=== PATIENT | female | born 1955 | race Caucasian/White ===

== ENCOUNTER 2022-05-29 13:08 | Outpatient (CLI) | payer MEDICARE, OTHER | END 2022-05-29 13:09 | disposition home or self-care (01) | LOC: CSHULT 13:08 | PROVIDERS: ATTEND Nurse Practitioner Family | DX: R55 Syncope and collapse (principal); I10 Essential (primary) hypertension; R20.2 Paresthesia of skin; I65.22 Occlusion and stenosis of left carotid artery | CPT/HCPCS: 93880 ==

== ENCOUNTER 2022-12-10 10:15 | Outpatient (CLI) | payer MEDICARE, OTHER | END 2022-12-10 10:16 | disposition home or self-care (01) | LOC: CSHMAMMO 10:15 | PROVIDERS: ATTEND Nurse Practitioner Family | DX: Z12.31 Encounter for screening mammogram for malignant neoplasm of breast (principal); Z80.3 Family history of malignant neoplasm of breast | CPT/HCPCS: 77063; 77067 ==

== ENCOUNTER 2024-04-20 13:00 | Outpatient (CLI) | payer MEDICARE, OTHER | END 2024-04-20 13:01 | disposition home or self-care (01) | LOC: CSHULT 13:00 | PROVIDERS: ATTEND Nurse Practitioner Family | DX: M79.89 Other specified soft tissue disorders (principal) | CPT/HCPCS: 76999 ==